=== PATIENT | female | born 1990 | race Caucasian/White ===

== ENCOUNTER 2017-12-22 17:35 | Emergency (ER) | payer SELFPAY ==
[2017-12-22 17:37] VITALS: BP 116/63; PULSE 89; RESP 16; TEMP 37.1; O2SAT 100; BMI 19.8
--- NOTE | 2017-12-22 17:52 | CT_ITS ---
STUDY: CT BRAIN WITHOUT CONTRAST REASON FOR EXAM: Female, 27 years old. Mental status change, lethargy, history of epilepsy with craniotomy RADIATION DOSAGE (If Supplied By Facility): CTDIvol = ( 44.99 ) mGy, DLP = ( 796.11 ) mGycm TECHNIQUE: Transaxial CT imaging of the brain was performed without administration of intravenous contrast material. Sagittal and coronal reconstructed images are provided and reviewed. Individualized dose optimization techniques were used for this CT. COMPARISON: No comparison studies are available. FINDINGS: There are 2 ventriculostomy catheters entering via a right posterior parietal approach. The tip of one projects slightly more anteriorly in the region of the foramen of bone marrow, the second projects posteriorly within the right lateral ventricle. 2. Reservoirs are seen along the skull. There is interruption of the tubing of one of the ventriculostomy catheters along the posterior right parietal scalp. There has been a right temporal craniotomy. The ventricles are slightly asymmetric, with the left lateral ventricle slightly larger than the right. No significant hydrocephalus or transependymal flow of CSF is seen. There has been resection of the right temporal lobe. Small calcifications are seen within the right basal ganglia. Normal brainstem. Normal cerebellum. There is no intracranial hemorrhage. There are no findings of an acute ischemic infarction. Normal visualized paranasal sinuses. CT/Brain/Head without Contrast IMPRESSION: Postoperative changes of right temporal lobe resection. The ventricles are slightly asymmetric, but not significantly dilated. Comparison with any previous CTs would be beneficial. Electronically Signed: Eliezer Armijo DO at 18:52 EDT Tel , Service support ,
--- NOTE | 2017-12-22 17:54 | RAD_ITS ---
STUDY: X-RAY CHEST REASON FOR EXAM: Female, 27 years old. Lethargy, fever, history of epilepsy TECHNIQUE: Single AP portable view of the chest. COMPARISON: None. FINDINGS: Ventriculostomy catheter tubing projects along the right side of the neck and chest, entering into the abdomen with the distal tip not included. There is additionally an abandoned ventriculostomy catheter also along the right side of the neck, with an interruption within the lower neck soft tissues. Cardiac monitoring leads overlie the chest. The lungs are clear and expanded. There is no demonstrated pleural abnormality. Normal size heart. Normal mediastinum and milo. Normal visualized pulmonary arteries. Normal visualized aortic arch and descending thoracic aorta. Normal visualized thoracic spine. Normal visualized ribs, clavicles, and shoulders. There is no demonstrated abnormality of the visualized soft tissue structures of the upper abdomen. RAD/Chest 1 View (Portable) IMPRESSION: No acute process in the chest. Electronically Signed: Eliezer Armijo DO at 18:43 EDT Tel , Service support ,
--- NOTE | 2017-12-22 17:55 | ED.RN ---
PT IS ABLE TO FOLLOW COMMANDS BY SQUEEZING WITH HER HAND. ATTEMPTS TO MOVE ARM INDICATING SHE IS HEARING.
--- NOTE | 2017-12-22 17:55 | ED.VISSUMM ---
- ER Visit Summary Date of Service: 12/22/17 Chief Complaint: Altered mental status History of Present Illness: The patient is a 27 F who presents with altered mental status that has been getting worse over the past week. Family states the patient is being treated for urinary tract infection. Family states patient's activity level has gotten progressively worse over the past week. Family states the patient is having difficulty waking up today. Family took the patient to the urgent care in [place] and then was referred here. Patient does have a history of spina bifida and a brain tumor. Patient had a craniotomy with excision of the brain tumor within the past year. Physical Examination: Vital signs are stable. Patient is afebrile. Patient is in no acute distress. Patient is sleeping on exam. Pupils are equal, round, and reactive to light bilaterally. Neck is supple. Trachea is midline. There is no JVD noted. Heart was regular rate and rhythm. Lungs are clear and equal bilateral. Abdomen is soft. Bowel sounds are normal. There is no apparent tenderness. Patient is not awake and neuro exam is unable to be performed at this time. Test Results: CT scan of the brain was obtained. There is no evidence of hydrocephalus. The left lateral ventricle is slightly larger than the right but there is no other acute intracranial abnormality noted. CBC, basic metabolic profile, and urinalysis were obtained were within normal limits. Family requested CT scan of the abdomen and pelvis be obtained to look at her kidneys. This was performed. Emergency Department Course and Treatment: Patient had some improvement of her mental status here in the emergency department at this has declined again. Case was discussed with Dr. Quiroga at the [facility]. Patient will be transferred there for further evaluation. Family understood and was agreeable with the plan. All questions were answered. Disposition: Transferred to [facility] Impression: Headache, status post INBOUND CALL CENTER REPRESENTATIVE shunt This note was generated with [employer] dictation software. It may contain incorrect words, spelling, and punctuation that were not noted in review of the chart prior to signing ED Disposition - Plan for ED Patient: Disposition: [facility] - Main Chief Complaint: Mental Status Change Diagnosis: Headache, S/P INBOUND CALL CENTER REPRESENTATIVE shunt
[2017-12-22 18:01] VITALS: BP 115/78; PULSE 88; RESP 20; O2SAT 99
--- NOTE | 2017-12-22 18:01 | ED.DCSUM_ITS ---
- ER Visit Summary Date of Service: 12/22/17 Chief Complaint: Altered mental status History of Present Illness: The patient is a 27 F who presents with altered mental status that has been getting worse over the past week. Family states the patient is being treated for urinary tract infection. Family states patient 's activity level has gotten progressively worse over the past week. Family states the patient is having difficulty waking up today. Family took the patient to the urgent care in [place] and then was referred here. Patient does have a history of spina bifida and a brain tumor. Patient had a craniotomy with excision of the brain tumor within the past year. Physical Examination: Vital signs are stable. Patient is afebrile. Patient is in no acute distress. Patient is sleeping on exam. Pupils are equal, round, and reactive to light bilaterally. Neck is supple. Trachea is midline. There is no JVD noted. Heart was regular rate and rhythm. Lungs are clear and equal bilateral. Abdomen is soft. Bowel sounds are normal. There is no apparent tenderness. Patient is not awake and neuro exam is unable to be performed at this time. Test Results: CT scan of the brain was obtained. There is no evidence of hydrocephalus. The left lateral ventricle is slightly larger than the right but there is no other acute intracranial abnormality noted. CBC, basic metabolic profile, and urinalysis were obtained were within normal limits. Family requested CT scan of the abdomen and pelvis be obtained to look at her kidneys. This was performed. Emergency Department Course and Treatment: Patient had some improvement of her mental status here in the emergency department at this has declined again. Case was discussed with Dr. Quiroga at the [facility]. Patient will be transferred there for further evaluation. Family understood and was agreeable with the plan. All questions were answered. Disposition: Transferred to [facility] Impression: Headache, status post IT SUPPORT MANAGER shunt This note was generated with [employer] dictation software. It may contain incorrect words, spelling, and punctuation that were not noted in review of the chart prior to signing ED Disposition - Plan for ED Patient: Disposition: [facility] - Main Chief Complaint: Mental Status Change Diagnosis: Headache, S/P IT SUPPORT MANAGER shunt
[2017-12-22] MEDS: 0.9% Normal Saline 1,000 ML 250 ML IV (18:05)
[2017-12-22 18:11] LABS: Absolute Lymphocyte Count 1.13 X10^3/ul (0.83-4.51); Basophil# 0.01 X10^3/uL; Basophil% 0.1 % (0-1); Eosinophil# 0.01 X10^3/uL; Eosinophils% 0.1 % (0-5); Lymphocyte # 1.13 X10^3/ul (4.0); Mean Corp Hgb Conc 33.3 g/gl (32-36); Mean Corpuscular Hgb 26.7 pg (27.0-32.0); Mean Corpuscular Volume 80.2 fL (81-99); Mean Platelet Vol. 9.3 fl (6.2-12.0); Monocyte# 0.42 X10^3/uL; Monocyte% 5.6 % (0-10); Neutrophil # 5.95 X10^3/uL (2.7-7.7); Neutrophil % 79.1 % (47-70); Platelet Count 266 K/mm3 (150-450); RBC Distribution Width CV 13.5 % (11.6-14.6); RBC Distribution Width SD 38.9 fl (35.1-43.9); Red Blood Count 4.49 M/mm3 (4.2-5.4); White Blood Count 7.5 K/mm3 (4.4-11.0)
[2017-12-22 18:12] LABS: POSITIVE COUNT NO; POSITIVE DIFFERENTIAL NO; POSITIVE MORPHOLOGY NO
[2017-12-22 18:15] LABS: International Normalized Ratio 1.2
[2017-12-22 18:39] LABS: ALB/GLOB Ratio 0.9 RATIO (0.9-2.4); AST(SGOT) 12 U/L (15-37); Alanine Aminotransfer ALT/SGPT 15 U/L (13-56); Albumin, Serum 3.6 g/dL (3.2-5.0); Alkaline Phosphatase 94 U/L (45-117); Anion Gap 11 (5-15); BUN 9 mg/dL (7-18); BUN/Creat Ratio 20.2 RATIO (10-20); Calcium,Total 8.4 mg/dL (8.5-10.1); Chloride 104 mmol/L (98-107); Creatinine, Serum 0.44 mg/dL (0.55-1.02); EST Glomerular Filtration Rate 181 mL/min (>60); Est Glom Filt Rate - Afr Amer 219 mL/min (>60); Estimated Creatinine Clearance 180.36 ml/min; Globulin 4.2 g/dL (2.2-4.2); Glucose 84 mg/dL (74-106); Potassium 3.8 mmol/L (3.5-5.1); Protein, Total 7.8 g/dL (6.4-8.2); Sodium Level 136 mmol/L (136-145)
[2017-12-22 18:57] LABS: Bacteria 0 SEEN /hpf (None Seen); Mucous, Urine 0 SEEN /hpf (<or=2+); Red Blood Cells-Urine 0 SEEN /hpf (0-5)
[2017-12-22 18:58] LABS: Color, Urine Yellow (Yellow); Glucose, Dipstick Normal (Normal); Leukocyte Esterase-Dipstick 25 /ul (Negative); Nitrite-Dipstick Positive (Negative); Occult Blood-Urine Negative /ul (Negative); Protein-Dipstick Negative (Negative); Specific Gravity, Urine 1.005 (1.002-1.030); Urine Clarity Sl. Cloudy (Clear); Urine Urobilinogen 4 mg/dl (Normal)
[2017-12-22 19:05] LABS: Urine Bilirubin Dipstick 3 mg/dL (Negative)
[2017-12-22 19:07] VITALS: BP 109/74; PULSE 82; RESP 16; TEMP 37.2; O2SAT 98
[2017-12-22 19:07] LABS: Ketone-Dipstick 150 mg/dl (Negative)
[2017-12-22 19:10] LABS: Squamous Epithelial Cells - UA 0-5 SEEN /hpf (5-10); White Blood Cells 0-5 SEEN /hpf (0-5)
--- NOTE | 2017-12-22 19:38 | ED.RN ---
lab called with critical lab results. urine ketones 150. Dr. Maguire made aware. no new orders at this time
[2017-12-22] MEDS: Ibuprofen 200 MG Tablet 800 MG PO (20:05)
[2017-12-22 20:39] VITALS: BP 97/57; PULSE 82; RESP 22; TEMP 36.9; O2SAT 98
[2017-12-22] MEDS: Morphine 2 MG/ML Syringe IV (21:34)
[2017-12-22 21:43] VITALS: BP 91/58; PULSE 76; RESP 19; O2SAT 98
--- NOTE | 2017-12-22 22:07 | CT_ITS ---
STUDY: CT ABDOMEN AND PELVIS WITHOUT CONTRAST REASON FOR EXAM: Female, 27 years old. Low back pain, lethargy RADIATION DOSAGE (If Supplied By Facility): CTDIvol = ( 6.04 ) mGy, DLP = ( 271.80 ) mGycm TECHNIQUE: Transaxial images were obtained from the dome of the diaphragm to the symphysis pubis without oral contrast, and without intravenous contrast. Sagittal and coronal images were reconstructed. Individualized dose optimization techniques were used for this CT. COMPARISON: None. FINDINGS: The visualized lung bases are unremarkable. The visualized portions of the heart are within normal limits. Evaluation of the abdominal viscera is limited in the absence of intravenous contrast. Normal liver. Normal gallbladder and extrahepatic biliary system. Normal spleen. Normal pancreas. Normal bilateral adrenal glands. Normal right kidney. Normal left kidney. Normal visualized stomach. Normal small intestine. Normal colon. There is non-visualization of the appendix. Normal abdominal aorta. Normal inferior vena cava. Normal retroperitoneum. Normal urinary bladder. Normal visualized uterus. There is free fluid within the pelvis which may relate to the [employer] shunt catheter or physiologic fluid and demonstrating female. Ventriculostomy catheter tubing is seen, making several loops within the pelvis. It is unclear which of these 2 ventriculostomy catheter tubes represent the band into catheter seen on the chest radiograph from today's date. The tips of both catheters are within the pelvis. 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 There is exaggerated lordosis of the lumbosacral junction. Bilateral L5 pars defects are seen without spondylolisthesis. CT/Abdomen/Pelvis without Cont IMPRESSION: No bowel obstruction or acute renal pathology. Additional nonacute findings, as detailed above. Electronically Signed: Eliezer Armijo DO at 23:55 EDT Tel , Service support ,
[2017-12-22 23:32] VITALS: BP 96/66; PULSE 78; RESP 18; O2SAT 97
[2017-12-23] VITALS: BP 99/66; PULSE 68; RESP 16; TEMP 36.6; O2SAT 97
[2017-12-23 00:19] VITALS: BP 99/66; PULSE 68; RESP 16; TEMP 36.6; O2SAT 97
[2017-12-23 02:19] VITALS: BP 94/67; PULSE 65; RESP 15; O2SAT 97
== END 2017-12-23 02:59 | disposition short-term general hospital (02) ==
PROVIDERS: Emergency Provider Emergency Medicine; Family Provider Nurse Practitioner; PCP Nurse Practitioner
DX: R51 Headache (principal); Z98.2 Presence of cerebrospinal fluid drainage device; Q05.9 Spina bifida, unspecified; Z79.899 Other long term (current) drug therapy
CPT/HCPCS: 70450; 71045; 74176; 80053; 81001; 83605; 85025; 85610; 85730; 87040; 87086; 96361; 96374; 99285; J7030

== ENCOUNTER → 2018-09-29 | Outpatient (CLI) | payer SELFPAY | END | disposition home or self-care (01) | PROVIDERS: Family Provider Nurse Practitioner; PCP Nurse Practitioner; Referring Provider Nurse Practitioner; Visit Provider Nurse Practitioner | DX: R10.9 Unspecified abdominal pain (principal) | CPT/HCPCS: 87086 ==

== ENCOUNTER → 2018-12-04 | Outpatient (CLI) | payer SELFPAY ==
[2018-12-04 19:30] VITALS: BMI 18.8
[2018-12-05 00:26] LABS: ALB/GLOB Ratio 0.8 RATIO (0.9-2.4); AST(SGOT) 45 U/L (15-37); Alanine Aminotransfer ALT/SGPT 120 U/L (13-56); Albumin, Serum 3.6 g/dL (3.2-5.0); Alkaline Phosphatase 101 U/L (45-117); Anion Gap 3 (5-15); BUN 6 mg/dL (7-18); BUN/Creat Ratio 10.3 RATIO (10-20); Calcium,Total 8.7 mg/dL (8.5-10.1); Chloride 110 mmol/L (98-107); Creatinine, Serum 0.58 mg/dL (0.55-1.02); EST Glomerular Filtration Rate 132 mL/min (>60); Est Glom Filt Rate - Afr Amer 160 mL/min (>60); Globulin 4.4 g/dL (2.2-4.2); Glucose 92 mg/dL (74-106); Sodium Level 142 mmol/L (136-145)
[2018-12-05 00:51] LABS: Absolute Lymphocyte Count 2.23 X10^3/ul (0.83-4.51); Absolute Neutrophil Count 4.3 X10^3/uL (2.0-7.7); Basophil# 0.03 X10^3/uL; Basophil% 0.4 % (0-1); Eosinophil# 0.14 X10^3/uL; Hematocrit 38.4 % (37-47); Hemoglobin 12.2 g/dl (12.0-15.0); Lymphocyte # 2.23 X10^3/ul (4.0); Lymphocyte % 31.2 % (19-41); Mean Corp Hgb Conc 31.8 g/gl (32-36); Mean Corpuscular Hgb 25.6 pg (27.0-32.0); Mean Corpuscular Volume 80.7 fL (81-99); Mean Platelet Vol. 10.2 fl (6.2-12.0); Monocyte# 0.42 X10^3/uL; Monocyte% 5.9 % (0-10); Neutrophil # 4.32 X10^3/uL (2.7-7.7); Neutrophil % 60.4 % (47-70); Platelet Count 292 K/mm3 (150-450); RBC Distribution Width CV 14.2 % (11.6-14.6); RBC Distribution Width SD 41.6 fl (35.1-43.9); Red Blood Count 4.76 M/mm3 (4.2-5.4); White Blood Count 7.2 K/mm3 (4.4-11.0)
[2018-12-05 01:07] LABS: POSITIVE COUNT NO; POSITIVE DIFFERENTIAL NO; POSITIVE MORPHOLOGY NO
== END | disposition home or self-care (01) ==
PROVIDERS: Family Provider Nurse Practitioner; PCP Nurse Practitioner; Referring Provider Nurse Practitioner; Visit Provider Nurse Practitioner
DX: R56.9 Unspecified convulsions (principal)
CPT/HCPCS: 80053; 85025

== ENCOUNTER 2019-12-04 22:42 | Inpatient (IN) | payer OTHER, SELFPAY ==
[2018-12-04 19:30] VITALS: BMI 18.8
[2019-12-04 22:44] VITALS: BP 113/69; PULSE 135; RESP 20; TEMP 38.6; O2SAT 98; BMI 23.1
--- NOTE | 2019-12-04 22:55 | EKG12_ITS ---
Test Reason : SEIZURE Blood Pressure : / mmHG Vent. Rate : 127 BPM Atrial Rate : 127 BPM P-R Int : 138 ms QRS Dur : 088 ms QT Int : 314 ms P-R-T Axes : 064 060 041 degrees QTc Int : 456 ms Sinus tachycardia Otherwise normal ECG Confirmed by JESSICA DONALD, CHARLES ([id number]), general expeditor WINNIE CALLAHAN ([id number]) on 12/09/2019 1:02:14 PM Referred By: BB Confirmed By:CHARLES LOPEZ MD
--- NOTE | 2019-12-04 22:56 | CT_ITS ---
STUDY: CT BRAIN WITHOUT CONTRAST REASON FOR EXAM: Female, 29 years old. HEADACHE AND FEVER,TONIC CLONIC SEIZURE -- HX:SEIZURES,CROP RESEARCH SCIENTIST SHUNT,SPINA BIFIDA RADIATION DOSAGE (If Supplied By Facility): CTDIvol = ( 44.99 ) mGy, DLP = ( 796.11 ) mGycm TECHNIQUE: Transaxial CT imaging of the brain was performed without administration of intravenous contrast material. Individualized dose optimization techniques were used for this CT. COMPARISON: CT brain 12/22/2017. FINDINGS: Normal soft tissue structures. Normal calvarium. Left frontal approached ventriculostomy shunt with catheter tip in the left frontal horn. Left frontal addie hole, remote addie hole right parietal and right frontal parietal craniotomy. Previous right parietal approach shunt has been removed in the interim. Postsurgical changes right temporal lobe. Stable calcification in the right basal ganglia. Minimal low-attenuation at the previous right parietal shunt entry site. No hydrocephalus. Stable mild asymmetry of the lateral ventricles. . Normal brainstem. Normal cerebellum. There is no intracranial hemorrhage. There are no findings of an acute ischemic infarction. Normal visualized paranasal sinuses. CT/Brain/Head without Contrast IMPRESSION: Ventriculostomy shunt as above with stable asymmetry of the lateral ventricles and without hydrocephalus. Postsurgical changes right middle cranial fossa and stable calcification in the basal ganglia. There is no acute intracranial pathology.. Electronically Signed: Kenya Lopez MD at 1:01 EDT , Service support ,
--- NOTE | 2019-12-04 22:56 | RAD_ITS ---
STUDY: X-RAY - SHUNTOGRAM REASON FOR EXAM: Female, 29 years old. Tonic-clonic seizure. TECHNIQUE: lateral views of the skull, AP view of the chest, abdomen and pelvis were obtained. COMPARISON: CT brain and CT abdomen and pelvis 12/05/2019. FINDINGS: A left-sided ventricular shunt without evidence of break or kinking in the tubing course. Shunt courses along the soft tissue of the skull, lateral neck, chest and abdomen with the tip located in the right pelvis. Intact course within the abdomen and pelvis confirmed on CT abdomen pelvis, intact course along the left scalp soft tissue to the level of the cervical spine confirm the CT brain. Postsurgical changes at the temporal lobe with bilateral addie holes. There is a abandoned right sided shunt coursing over the right paraspinal chest to the right upper abdomen and along the posterior neck soft tissue. There is no acute cardiopulmonary disease. Lumbosacral and pelvic changes consistent with spina bifida. RAD/Shuntogram/Prec Placed Shunt IMPRESSION: Shunt tubing without evidence of break or kinking along its course. Electronically Signed: Kenya Lopez MD at 1:15 EDT , Service support ,
--- NOTE | 2019-12-04 22:56 | CT_ITS ---
STUDY: CT ABDOMEN AND PELVIS WITHOUT CONTRAST REASON FOR EXAM: Female, 29 years old. DIFFUSE ABDOMEN PAIN AND FEVER,NAUSEA X 5 DAYS,SEIZURE -- HX:SPINA BIFIDA,SEIZURES,[employer] INSTALLER SHUNT RADIATION DOSAGE (If Supplied By Facility): CTDIvol = ( 7.43 ) mGy, DLP = ( 796.11 ) mGycm TECHNIQUE: Transaxial 2.5 mm images were obtained from the dome of the diaphragm to the symphysis pubis without oral contrast, and without intravenous contrast. Sagittal and coronal images were reconstructed. This examination is limited for the evaluation of gastrointestinal, solid organs and vascular structures due to the lack of intravenous and oral contrast. Individualized dose optimization techniques were used for this CT. COMPARISON: CT abdomen pelvis 12/22/2017 FINDINGS: The visualized lung bases are unremarkable. The visualized portions of the heart are within normal limits. Subcutaneous shunt left anterior abdomen with percutaneous approach at the umbilicus level coiling in the left lateral abdomen and coursing through the right inferior colonic gutter. Shunt course is intact. There is a right parasternal shunt catheter entering the upper anterior midline abdomen with a short intraperitoneal course adjacent to the left hepatic lobe. Normal liver. Normal gallbladder and extrahepatic biliary system. Normal spleen. Normal pancreas. Normal bilateral adrenal glands. Normal right kidney. Normal left kidney. There is no obstructive uropathy, obstructive renal or ureteral calculi. Normal visualized stomach. Normal small intestine. Normal colon. There is non-visualization of the appendix. Trace fluid in the right inferior colonic gutter. Normal abdominal aorta. Normal inferior vena cava. Normal retroperitoneum. Normal urinary bladder. The uterus is age appropriate. Trace pelvic fluid. Normal abdominal wall. Exaggerated lordosis of the lower lumbar spine. There is a stable myelomeningocele and osseous deformity consistent with spina bifida. Soft tissue swelling posterior to the bilateral ischii. There is focal soft tissues prominence with air posterior to the right ischio which is deformed and sclerosis. There is no acute cortical destruction. CT/Abdomen/Pelvis without Cont IMPRESSION: There is no hydronephrosis, abscess, collection, perforation or , small bowel or colonic obstruction. Intact shunt course as above. Appendix is not visualized. Possible chronic decubitus ulceration posterior to the right ischium, acute inflammation not excluded. Mild inflammation without skin tract on the left side. These findings appear stable. Electronically Signed: Kenya Lopez MD at 1:13 EDT , Service support ,
[2019-12-04 22:59] VITALS: BP 113/69; PULSE 135; RESP 20; TEMP 38.6; O2SAT 98
--- NOTE | 2019-12-04 23:03 | ED.DCSUM_ITS ---
History of Present Illness Chief Complaint: Seizure Informant: Patient, Family, Genetic Scientist Onset: Today Context: Sudden Onset Timing: Intermittent - x1, Lasts - couple mins Quality: tonic-clonic Location: full body Current Severity: - - gone Maximum Severity: Moderate Worsened by: unk Relieved by: nothing, spont abated Associated Symptoms: about 5 days of fevers, headaches, diffuse abd pain, diarrhea Narrative: Patient self caths, is wheelchair-bound, and has a ventriculoperitoneal shunt due to spina bifida, and states she has seen cloudy urine lately, has had diffuse abdominal pain, some nausea but no vomiting. She does not feel anything in her legs. The father arrives and states that she has had some wounds on her feet recently, 2 days ago the one on the right foot ruptured, drained pus, and does not look good. This is the first visit to a physician in that period of time, since she had a seizure tonight. She is on seizure medication. She has had multiple shunt revisions in the past, her surgeries have been performed at [facility]. - Past Medical History (1) Spina bifida Status: Chronic (2) Seizure disorder Status: Chronic Past Medical History - Allergies and Home Meds Allergies/Adverse Reactions: Allergies amoxicillin [From Augmentin] Allergy (Severe, Verified 12/04/18 19:33) Other clavulanic acid [From Augmentin] Allergy (Severe, Verified 12/04/18 19:33) Other Primary Care Physician: Dori Case NP-C [Primary Care Provider] - Lives: With Family Smoking Status: Never smoker Review of Systems General: Reports: Chills, Fever, Malaise. Denies: Sweats Eyes: Denies: Visual changes - bilaterally, Diplopia ENT: Denies: Bilateral ear pain, Rhinorrhea, Sore throat Cardiovascular: Denies: Chest pain Respiratory: Reports: Dyspnea - a little last few days. Denies: Cough, Orthopnea Gastrointestinal: Reports: Abdominal pain, Nausea, Diarrhea. Denies: Vomiting, Hematochezia Genitourinary: Reports: - - cloudy urine Musculoskeletal: Reports: Extremity Pain. Denies: Neck pain, Back pain Skin: Reports: Abscess - feet, Wounds Neurological: Reports: Headache, Weakness - BLE, Numbness - BLE Physical Exam Vital Signs/Narrative: Vital Signs Temp Pulse Resp BP Pulse Ox 12/04/19 22:59 101.5 F H 135 H 20 H 113/69 98 12/04/19 22:44 101.5 F H 135 H 20 H 113/69 98 Inital Vital Signs reviewed: Yes General: Well nourished, Well developed, No Acute Distress Head: Normocephalic, Atraumatic Eyes: Perrl, EOMI ENT: Moist mucous membranes, No rhinorrhea Neck: Supple, No lymphadenopathy, - - mildly tender throughout shunt distribution left neck, no erythema/abscess Cardiovascular: Regular rate, Regular rhythm, Tachycardia Respiratory: No distress, CTA bilaterally, Chest nontender - including shunt chest distribution Abdomen: Soft, Nondistended, Normal bowel sounds, Tender - diffusely, Guarding - vol, Rebound tenderness - inconsistently; pt states it hurts more to palpate abd Extremities: Edema - Right foot diffuse Skin: Normal color, No rash, - - Very swollen right foot, erythematous, deep abscess cavity lateral aspect of foot, not able to palpate any subcutaneous emphysema, no lymphangitis, looks good above the ankle with a couple of scabbed over wounds. On the dorsum of the left foot, there is a focally swollen area that is not erythematous, but is open, and there is pus easily expressible from it. The rest of the foot looks good. Neurological: Alert, Cranial nerves II-XII grossly intact, Normal Strength - arms, Normal Sensation - arms, Parasthesia - BLE, Weakness - BLE Psychological: Normal affect, Normal Mood Diagnostic/Tx/Re-eval Impressions Abdomen/Pelvis CT 12/04/19 22:56 IMPRESSION: There is no hydronephrosis, abscess, collection, perforation or , small bowel or colonic obstruction. Intact shunt course as above. Appendix is not visualized. Possible chronic decubitus ulceration posterior to the right ischium, acute inflammation not excluded. Mild inflammation without skin tract on the left side. These findings appear stable. Electronically Signed: Kenya Lopez MD at 1:13 EDT , Service support , Brain CT 12/04/19 22:56 IMPRESSION: Ventriculostomy shunt as above with stable asymmetry of the lateral ventricles and without hydrocephalus. Postsurgical changes right middle cranial fossa and stable calcification in the basal ganglia. There is no acute intracranial pathology.. Electronically Signed: Kenya Lopez MD at 1:01 EDT , Service support , Shuntogram 12/04/19 22:56 IMPRESSION: Shunt tubing without evidence of break or kinking along its course. Electronically Signed: Kenya Lopez MD at 1:15 EDT , Service support , Foot X-Ray 12/04/19 23:59 IMPRESSION: Large soft tissue defect likely large ulceration. Significant soft tissue swelling and edema. Osteoporosis. Arthropathy with remodeling particularly of the tarsal bones. No destructive osseous lesion seen to suggest osteomyelitis. This can be further assessed with MRI or bone scan. Electronically Signed: Kenya Lopez MD at 0:57 EDT , Service support , 12/04/19 22:56 Abdomen/Pelvis without Cont [CT] Stat Brain/Head without Contrast [CT] Stat Shuntogram/Prec Placed Shunt [RAD] Stat 12/04/19 23:04 Foot min 3 Views [RAD] Stat 12/04/19 23:59 Foot min 3 Views [RAD] Stat Laboratory Results 12/04/19 12/04/19 12/05/19 23:50 23:50 01:05 WBC 14.3 H RBC 4.05 L Hgb 10.4 L Hct 32.8 L MCV 81.0 MCH 25.7 L MCHC 31.7 L RDW Std Deviation 41.8 RDW Coeff of Danny 14.2 Plt Count 257 MPV 10.0 Immature Gran % (Auto) 1.700 H Neut % (Auto) 82.6 H Lymph % (Auto) 8.7 L [place] % (Auto) 6.5 Eos % (Auto) 0.1 Baso % (Auto) 0.4 Absolute Neuts (auto) 11.8 H Absolute Lymphs (auto) 1.25 Nucleated RBC % 0 Sodium 137 Potassium 3.4 L Chloride 104 Carbon Dioxide 22.0 Anion Gap 11 BUN 7 Creatinine 0.37 L Estim Creat Clear Calc 187.26 Est GFR (MDRD) Af Amer 265 Est GFR (MDRD) Non-Af 219 BUN/Creatinine Ratio 18.8 Glucose 88 Calcium 8.3 L Total Bilirubin 1.30 H AST 68 H ALT 55 Alkaline Phosphatase 265 H Troponin I < 0.015 Total Protein 6.9 Albumin 2.0 L Globulin 4.9 H Albumin/Globulin Ratio 0.4 L Urine Color Yellow Urine Clarity Clear Urine pH 5.0 Ur Specific [place] 1.010 Urine Protein 15 H Urine Glucose (UA) Normal Urine Ketones 150 H Urine Occult Blood 50 H Urine Nitrite Positive H Urine Bilirubin Negative Urine Urobilinogen Normal Ur Leukocyte Esterase Negative Urine RBC 0 SEEN Urine WBC 0 SEEN Ur Squamous Epith Cells 0-5 SEEN Amorphous Sediment 2+ Urine Bacteria 1+ Urine Mucus 0 SEEN - Rhythm Strip Rhythm Strip: Sinus Tach Rate: 127 Ectopy: None - EKG Initial EKG Interpretation: No Acute Injury Pattern, Sinus Tachycardia - Medical Decision Making This patient was very difficult to draw blood from. Nurses were not able to get the second set of blood cultures or a lactic acid. I said this was okay, and to give the antibiotics anyway, as it was in the patient's best interest. I believe she is septic from these infections in her feet. Her right foot appears to have very significant infection throughout the soft tissues. As above, x- ray show no definitive evidence of osteomyelitis although this does not rule that out definitively. Family is not exactly sure how long this is looked red and swollen, but they state that what appeared to be a large abscess on the lateral aspect rupture 2 days ago. This will need surgical consultation I believe. The left foot is not nearly as involved, it appears to have a fairly localized small abscess on the dorsum that we soaked in saline. She had no further seizure activity in the emergency department. Her shunt appears to be intact and CT appears stable. Abdomen/pelvis CT shows no acute intra-abdominal pathology, it did show concern for the possibility of a wound on her sacrum/ischium, we evaluated this clinically by rolling her over with acute care certified nursing assistant, she has an old wound that is well-healed without erythema, tend erness, or anything but skin and scar tissue showing. With her abdominal pain, tenderness, and some mild signs of rebound, my concern is that she could have an infection that the shunt could be transmitting. Given the complexity of this patient, and the possible need for neurosurgical consultation, I called her neurosurgeon at [facility]. Her who is also neurosurgeon and knows about the patient discussed with me on the phone, Dr. Melton; after discussing the case, he states that it does not sound like she has a shunt problem or needs an emergency evaluation of CSF. Indeed, 1 would expect in those cases if her CSF was infected causing her abdominal pain, that she would also have signs of meningitis, which she does not at this time. Patient's neck is very supple, with full range of motion, she is alert and conversive, and does not appear to have an encephalopathy. It is possible she had a breakthrough seizure because of her fever, sepsis, and foot infection. The family does not want to be transferred to [facility] at this time. Will discuss with hospitalist for admission. Will also add antibiotics for more broad-spectrum coverage for the foot which appears to be the obvious source of the sepsis, Invanz. However, the hospitalist wanted this canceled and switched to meropenem. ED Disposition - Plan for ED Patient: Disposition: Acute Care [facility] Diagnosis: Diffuse abdominal pain, RIVET STICKER (ventriculoperitoneal) shunt status, Cellulitis of foot, right, Cutaneous abscess of left foot, Sepsis, Breakthrough seizure, Spina bifida Referrals: Dori Case NP-C [Primary Care Provider] -
--- NOTE | 2019-12-04 23:04 | RAD_ITS ---
STUDY: X-RAY - LEFT FOOT CLINICAL: Female, 29 years old. NECROTIC SORES, FOOT PAIN TECHNIQUE: 3 view(s) of the foot. COMPARISON: None. FINDINGS: Generalized osteoporosis. Remodeling along the distal tibia and fibula and hindfoot. Cortical course thickening distal tibial diaphyses. Sclerosis of the anterior talus. Spurring along the talus and navicular bone. Mild arthropathy of the visualized subtalar, talonavicular, calcaneocuboid, tarsal and tarsometatarsal articulations. Normal metatarsi. Normal metatarsophalangeal joint of the great toe. Normal tibial and fibular sesamoid bones. Normal interphalangeal joint of the great toe. Normal phalanges of the great toe. Normal second through fifth metatarsophalangeal joints. Normal interphalangeal joints and phalanges of the lesser toes. Dorsal soft tissue swelling along the first tarsometatarsal joint and along the lateral fifth metatarsal base without visualized ulceration or pockets of subcutaneous air. RAD/Foot min 3 Views IMPRESSION: Osteoporosis, degenerative changes, remodeling of the tibia and fibula. Soft tissue swelling. No sign of osteomyelitis detected, if there is high clinical suspicion level, correlation with MRI or bone scan is recommended. Electronically Signed: Kenya Lopez MD at 1:19 EDT , Service support ,
[2019-12-04 23:53] VITALS: BP 112/70; PULSE 121; RESP 25; O2SAT 100
--- NOTE | 2019-12-04 23:59 | RAD_ITS ---
STUDY: X-RAY - RIGHT FOOT CLINICAL: Female, 29 years old. NECROTIC SORES ON LATERAL SIDE OF FOOT, FOOT PAIN TECHNIQUE: 3 view(s) of the foot. COMPARISON: None. FINDINGS: Generalized osteoporosis. Prior ORIF distal tibia. There is arthropathy along the tibiotalar, subtalar, talonavicular, calcaneocuboid, tarsal and tarsometatarsal articulations. There is sclerosis and partial remodeling of the tarsal bones. There is otherwise normal metatarsi. Mineral spurring along the flattened first metatarsal head. Normal tibial and fibular sesamoid bones. Normal interphalangeal joint of the great toe. Normal phalanges of the great toe. Normal second through fifth metatarsophalangeal joints. Normal interphalangeal joints and phalanges of the lesser toes. Large soft tissue defect along the base of the fifth metatarsal measuring greater than 2.7 x 1.1 cm along the dorsal soft tissue. There is significant diffuse soft tissue swelling centered at the dorsum of the foot with interstitial edema along the metatarsal level. No other pockets of air are detected. RAD/Foot min 3 Views IMPRESSION: Large soft tissue defect likely large ulceration. Significant soft tissue swelling and edema. Osteoporosis. Arthropathy with remodeling particularly of the tarsal bones. No destructive osseous lesion seen to suggest osteomyelitis. This can be further assessed with MRI or bone scan. Electronically Signed: Kenya Lopez MD at 0:57 EDT , Service support ,
[2019-12-05] VITALS (14 sets, daily range): BP systolic 91–109; BP diastolic 55–72; PULSE 97–114; RESP 14–27; TEMP 36.1–37.3; O2SAT 95–100; BMI 20.7; BMI 20.8
[2019-12-05 00:32] LABS: ALB/GLOB Ratio 0.4 RATIO (0.9-2.4); AST(SGOT) 68 U/L (15-37); Alanine Aminotransfer ALT/SGPT 55 U/L (13-56); Alkaline Phosphatase 265 U/L (45-117); Anion Gap 11 (5-15); BUN 7 mg/dL (7-18); BUN/Creat Ratio 18.8 RATIO (10-20); Calcium,Total 8.3 mg/dL (8.5-10.1); Chloride 104 mmol/L (98-107); Creatinine, Serum 0.37 mg/dL (0.55-1.02); EST Glomerular Filtration Rate 219 mL/min (>60); Est Glom Filt Rate - Afr Amer 265 mL/min (>60); Estimated Creatinine Clearance 187.26 ml/min; Globulin 4.9 g/dL (2.2-4.2); Glucose 88 mg/dL (74-106); Potassium 3.4 mmol/L (3.5-5.1); Protein, Total 6.9 g/dL (6.4-8.2); Sodium Level 137 mmol/L (136-145)
[2019-12-05 00:37] LABS: Absolute Lymphocyte Count 1.25 X10^3/uL (0.83-4.51); Absolute Neutrophil Count 11.8 X10^3/uL (2.0-7.7); Basophil# 0.06 X10^3/uL; Basophil% 0.4 % (0-1); Eosinophil# 0.01 X10^3/uL; Eosinophils% 0.1 % (0-5); Hematocrit 32.8 % (37-47); Hemoglobin 10.4 g/dL (12.0-15.0); Lymphocyte # 1.25 X10^3/ul (4.0); Lymphocyte % 8.7 % (19-41); Mean Corp Hgb Conc 31.7 g/dL (32-36); Mean Corpuscular Hgb 25.7 pg (27.0-32.0); Monocyte# 0.93 X10^3/uL; Monocyte% 6.5 % (0-10); NRBC Flagged by Analyzer 0 % (0-5); Neutrophil % 82.6 % (47-70); Platelet Count 257 K/mm3 (150-450); RBC Distribution Width CV 14.2 % (11.6-14.6); RBC Distribution Width SD 41.8 fl (35.1-43.9); Red Blood Count 4.05 M/mm3 (4.2-5.4); White Blood Count 14.3 K/mm3 (4.4-11.0)
[2019-12-05] MEDS: Acetaminophen 500 MG Tablet 1000 MG PO (00:40)
[2019-12-05] MEDS: 0.9% Normal Saline 1,000 ML 999 ML IV (00:41)
--- NOTE | 2019-12-05 00:42 | ED.RN ---
FISHING ROD ASSEMBLER AT BEDSIDE FOR MORE SPECIMENS. UPDATED PT AND DAD ON POC.
--- NOTE | 2019-12-05 00:52 | ED.RN ---
[facility] WAS UNABLE TO DRAW LABS, TRIED ONCE. UPDATED.
[2019-12-05 01:17] LABS: Mucous, Urine 0 SEEN /hpf (<or=2+); Red Blood Cells-Urine 0 SEEN /hpf (0-5); White Blood Cells 0 SEEN /hpf (0-5)
--- NOTE | 2019-12-05 01:25 | ED.RN ---
DR. GUERRA DOESN'T WANT PT TO GET POKED ANY MORE. OKAY TO PROCEED WITH ATB.
[2019-12-05] MEDS: Vancomycin IV 1,000 MG/200 ML BAG 200 MG IV (01:26)
[2019-12-05 01:40] LABS: Color, Urine Yellow (Yellow); Glucose, Dipstick Normal (Normal); Leukocyte Esterase-Dipstick Negative /ul (Negative); Nitrite-Dipstick Positive (Negative); Occult Blood-Urine 50 /ul (Negative); Protein-Dipstick 15 mg/dl (Negative); Urine Bilirubin Dipstick Negative (Negative); Urine Clarity Clear (Clear); Urine Urobilinogen Normal (Normal)
[2019-12-05 01:41] LABS: Ketone-Dipstick 150 mg/dl (Negative)
[2019-12-05 01:53] LABS: Amorphous Sediment 2+; Bacteria 1+ /hpf (None Seen); Squamous Epithelial Cells - UA 0-5 SEEN /hpf (5-10)
--- NOTE | 2019-12-05 05:50 | HP.PCM_ITS ---
Problem List (1) Spina bifida Status: Chronic (2) Seizure disorder Status: Acute (3) ELECTRICIAN APPRENTICE POWERHOUSE (ventriculoperitoneal) shunt status Status: Acute (4) Cellulitis of foot, right Status: Acute (5) Cutaneous abscess of left foot Status: Acute (6) Sepsis Status: Acute (7) Breakthrough seizure Status: Acute (8) Seizure Status: Acute (9) Lower abdominal guarding Status: Acute History of Present Illness Date of Admission: 12/05/19 Chief Complaint: abdominal pain The patient is a 29 year old F with a significant history of spina bifida; ELECTRICIAN APPRENTICE POWERHOUSE shunt; culture bound and multiple social presents emergency department with abdominal pain. He rated his pain as 5 out of 10. His pain has been going on for 1 week. His pain is aching. The pain radiates to her back. The pain is worse with eating. She denies any ameliorating factors to the pain. Patient straight cath herself. She straight caths about 4 times a day. Patient reports dysuria. Reportedly patient has some jerking movements and altered mental status. Per patient's father patient has not checked her Trileptal as prescribed. She takes a decreased dose of the Trileptal. And her last seizure was about 2 years ago. Past Medical History Past Medical History (Chronic Problems): Chronic Problems (Last Reviewed 12/05/19 @ 07:[address] Vinny Russo MD) Spina bifida (Chronic) Medical History: Medical History (Last Reviewed 12/05/19 @ 07:[address] 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 Vinny Russo MD) History of orthopedic surgery Z98.890 Lives: With Family Smoking Status: Never smoker - *Family History Maternal Family History: Family History (Last Reviewed 12/05/19 @ 07:[address] Vinny Russo MD) Other Breast cancer Diabetes Heart disease High cholesterol Review of Systems Constitutional: Reports: Chills, Fever - subjective. Denies: Weight Change HEENT: Denies: Head Aches, Sinus Congestion, Sinus Drainage Cardiovascular: Denies: Chest Pain, Palpitations Respiratory: Denies: Cough, Shortness of breath at rest, Sputum production Gastrointestinal: Reports: Abdominal Pain. Denies: Nausea, Vomiting Genitourinary: Denies: Dysuria Musculoskeletal: Denies: Joint Pain, Joint Tenderness Skin: Reports: Wounds. Denies: Rash Neurological: Reports: Seizures. Denies: Focal weakness, Numbness, Tingling Psychiatric: Denies: Anxiety, Depression, Homicidal Ideations, Suicidal Ideations Hematologic/ Lymphatic: Denies: Easy Bruising, Easy Bleeding VTE Information - Inpt Only VTE Present on Admission: No VTE Mechan Device Prophylaxis: None VTE Pharm Prophylaxis ordered?: Yes Patient Problems: Active and Suspected Problems (Last Reviewed 12/05/19 @ 07:[address] Vinny Russo MD) ELECTRICIAN APPRENTICE POWERHOUSE (ventriculoperitoneal) shunt status (Acute) Cellulitis of foot, right (Acute) Cutaneous abscess of left foot (Acute) Sepsis (Acute) Breakthrough seizure (Acute) - Physical Exam Vitals/I&O's: Vital Signs Temp Pulse Resp BP Pulse Ox 98.5 F 97 21 H 99/59 L 98 12/05/19 05:16 12/05/19 05:16 12/05/19 05:16 12/05/19 05:16 12/05/19 05:16 Oxygen Delivery Method Room Air Weight: 59.1 kg Body Mass Index (BMI) 23.1 General: Alert, Oriented x3, Cooperative HEENT: PERRLA, EOMI, Normocephalic, - - Protrusion Neck: Supple, No JVD, Negative Carotid Bruits Lungs: Clear to auscultation, Normal air movement, No rhonchi, No wheeze, No rales Cardiovascular: Normal S1, Normal S2, No murmurs, Tachycardic Abdomen: Bowel Sounds Present, Soft, Tender Extremities: - - deformed bilateral feet Skin: No rashes, No breakdown, - - erythema and swelling of bilateral legs; open ulcers of bilateral legs; right worse than left Musculoskeletal: No Tenderness to Palpation of Joints or Extremities Neurological: Cranial nerves II-XII grossly intact Psych/Mental Status: Normal Affect, Appropriate Laboratory Results 12/04/19 23:50: Sodium 137, Potassium 3.4 L, Chloride 104, Carbon Dioxide 22.0, Anion Gap 11, BUN 7, Creatinine 0.37 L, Estim Creat Clear Calc 187.26, Est GFR (MDRD) Af Amer 265, Est GFR (MDRD) Non-Af 219, BUN/Creatinine Ratio 18.8, Glucose 88, Calcium 8.3 L, Total Bilirubin 1.30 H, AST 68 H, ALT 55, Alkaline Phosphatase 265 H, Troponin I < 0.015, Total Protein 6.9, Albumin 2.0 L, Globulin 4.9 H, Albumin/Globulin Ratio 0.4 L 12/04/19 23:50: WBC 14.3 H, RBC 4.05 L, Hgb 10.4 L, Hct 32.8 L, MCV 81.0, MCH 25.7 L, MCHC 31.7 L, RDW Std Deviation 41.8, RDW Coeff of Danny 14.2, Plt Count 257, MPV 10.0, Immature Gran % (Auto) 1.700 H, Neut % (Auto) 82.6 H, Lymph % (Auto) 8.7 L, [place] % (Auto) 6.5, Eos % (Auto) 0.1, Baso % (Auto) 0.4, Absolute Neuts (auto) 11.8 H, Absolute Lymphs (auto) 1.25, Nucleated RBC % 0 12/05/19 01:05: Urine Color Yellow, Urine Clarity Clear, Urine pH 5.0, Ur Specific [place] 1.010, Urine Protein 15 H, Urine Glucose (UA) Normal, Urine Ketones 150 H, Urine Occult Blood 50 H, Urine Nitrite Positive H, Urine Bilirubin Negative, Urine Urobilinogen Normal, Ur Leukocyte Esterase Negative, Urine RBC 0 SEEN, Urine WBC 0 SEEN, Ur Squamous Epith Cells 0-5 SEEN, Amorphous Sediment 2+, Urine Bacteria 1+, Urine Mucus 0 SEEN Current Medications Ertapenem 1 gm/ Sodium (Chloride) 60 mls @ 100 mls/hr IV X1 ONE Stop: 12/05/19 06:22 Assessment/Plan All Active Problems (Last Reviewed 12/05/19 @ 07:[address] Vinny Russo MD) Seizure disorder (Acute) ELECTRICIAN APPRENTICE POWERHOUSE (ventriculoperitoneal) shunt status (Acute) Cellulitis of foot, right (Acute) Cutaneous abscess of left foot (Acute) Sepsis (Acute) Breakthrough seizure (Acute) Seizure (Acute) Lower abdominal guarding (Acute) The patient is a 29 year old F with a significant history of spina bifida; ELECTRICIAN APPRENTICE POWERHOUSE shunt; wheel chair bound and multiple sores presenting to the emergency department with abdominal pain; dysuria; and foot wound infection who meets SIRS criteria and have infection of urine; abdomen and bilateral leg wounds; and who also had a seizure . Sepsis Patient with fever of more than 100.4; white count of 14,300; tachycardia and tachypnea. Also patient patient with bandemia. Blood culture x2 was obtained at the emergency department. Second blood culture lactic acid was not obtained because the very difficult to stick patients. Likely from abdominal infection; urine infection and bilateral foot wound infection. Can not rule out osteomyelitis of right foot. Received vancomycin and Merrem at emergency department. Vancomycin and Merrem ordered outpatient. Morphine for pain Tylenol for fever. Trend CBC, and BMP. Check ESR and CRP. Breast bilateral foot wound. Wound consult. Seizure Continue home Trileptal.. Ativan ordered. Seizure precautions. Hypokalemia Replaced. Trend DVT prophylaxis Subcutaneous heparin. Inpatient E&M: [id number] In Hosp L3
--- NOTE | 2019-12-05 06:31 | NURSING ---
[address] dr trejo sepsis, foot infection, breakthrough seizure, spina bifida
--- NOTE | 2019-12-05 07:39 | PCM.RX.CS ---
Consult Pharmacy has been consulted to manage selected antiobiotic: Vancomycin Type of Consult: New start Suspected Infection: Sepsis Labs: Sodium 137 mmol/L (136-145) 12/04/19 23:50 Potassium 3.4 mmol/L (3.5-5.1) L 12/04/19 23:50 Chloride 104 mmol/L (98-107) 12/04/19 23:50 Carbon Dioxide 22.0 mmol/L (21.0-32.0) 12/04/19 23:50 Anion Gap 11 (5-15) 12/04/19 23:50 BUN 7 mg/dL (7-18) 12/04/19 23:50 Creatinine 0.37 mg/dL (0.55-1.02) L 12/04/19 23:50 Est GFR (MDRD) Af Amer 265 mL/min (>60) 12/04/19 23:50 Est GFR (MDRD) Non-Af 219 mL/min (>60) 12/04/19 23:50 BUN/Creatinine Ratio 18.8 RATIO (10-20) 12/04/19 23:50 Glucose 88 mg/dL (74-106) 12/04/19 23:50 Goal Trough: 15-20 mcg/mL Pharmacy Plan for Drug Dosing: NEW START IV VANCOMYCIN Consulting Physician: Dr. Russo Indication: Sepsis 2/2 unknown source Goal Trough: 15-20 SrCr: 0.37 CrCl: 187 mL/min Comments: Pt got 1000mg IV x1 in ED. Admin time 12/05/19 @0126 Vancomcyin Dose: 750mg IV Q8hr to start 12/05/19 @0900 Pending Level: 12/06/19 @0030, prior to 4th total dose per protocol. Micro: Blood, Urine, and Wound cultures currently pending Pharmacy Service will continue to monitor and adjust dosing as required.
[2019-12-05] MEDS: 0.9% Normal Saline 1,000 ML 75 ML IV (08:27)
[2019-12-05 08:58] LABS: Erythrocyte Sedimentation Rate 81 mm/hr (0-20)
--- NOTE | 2019-12-05 09:27 | PCM.CONS.GEN ---
Reason for Consult Date of Consultation: 12/05/19 Reason for Consultation: Bilateral foot ulcers/infection History of Present Illness: The patient is a 29 year old female with complex medical history, including spina bifida, TRAVEL COUNSELOR shunt, seizures presented to [facility] last night due abdominal pain, back pain, also foot ulcerations and infection. Podiatry was consulted this morning by medicine team for further evaluation of foot ulcerations and infection. Patient's father was at bedside. They relate patient has history of on and off ulcerations to the feet, thinks it is from rubbing on a brace. Patient relates she has been following with physician at [facility] for foot ulcers. Patient relates it looked like ulcerations were healed about 1.5 weeks ago, but recently reopened and infection developed. The right foot is significantly worse than the left. There is significant redness, swelling and also drainage. The patient has no pain, as she has significant peripheral neuropathy to feet. WBC is elevated to 14.3, and there is concern patient is septic from this. There is concern patient had a seizure last night as well. Past Medical History Past Medical History (Chronic Problems): Chronic Problems (Last Reviewed 12/05/19 @ 07:[address] Vinny Russo MD) Spina bifida (Chronic) Medical History: Medical History (Last Reviewed 12/05/19 @ 07:[address] 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 Vinny Russo MD) History of orthopedic surgery Z98.890 Lives: With Family Smoking Status: Never smoker Tobacco Use: Non-smoker - *Family History Maternal Family History: Family History (Last Reviewed 12/05/19 @ 07:[address] Vinny Russo MD) Other Breast cancer Diabetes Heart disease High cholesterol Review of Systems Constitutional: Reports: Malaise. Denies: Chills, Fever Gastrointestinal: Reports: Nausea. Denies: Vomiting - Physical Exam Vitals/I&O's: Vital Signs Temp Pulse Resp BP Pulse Ox 97.9 F 102 H 14 101/69 99 12/05/19 06:55 12/05/19 06:55 12/05/19 06:55 12/05/19 06:55 12/05/19 07:30 Oxygen Delivery Method Room Air Weight: 53.2 kg Body Mass Index (BMI) 20.7 Intake and Output for Last 24 Hours 12/03/19 12/04/19 12/05/19 23:59 23:59 23:59 Intake Total 1200 / 1200 Balance 1200 / 1200 General: Alert, Oriented x3 Extremities: Capillary Refill Less than 3 Seconds, No Calf Tenderness, - - Right foot: There is large ulceration with nonviable tissue present to the dorsal lateral foot, there is purulence and abscess formation, there is cellulitis and edema to the right foot, there ulceration is to the subcutaneous tissue down to fascia layer and there is high concern for osteomyelitis. Left foot: There is open ulceration to the dorsal lateral foot - there is purulent drainage but no erythema/cellulitis, there is some edema. Vascular status appears to be intact to the foot bilateral. Sensation is significantly diminished c/w peripheral neuropathy, there is chronic deformity of the foot for spina bifida bilateral. There is no POP or pain on ROM to the foot/ankle bilateral. Psych/Mental Status: Appropriate, Alert and oriented to time, place, person, mood and affect Laboratory Results 12/04/19 23:50: Sodium 137, Potassium 3.4 L, Chloride 104, Carbon Dioxide 22.0, Anion Gap 11, BUN 7, Creatinine 0.37 L, Estim Creat Clear Calc 187.26, Est GFR (MDRD) Af Amer 265, Est GFR (MDRD) Non-Af 219, BUN/Creatinine Ratio 18.8, Glucose 88, Calcium 8.3 L, Total Bilirubin 1.30 H, AST 68 H, ALT 55, Alkaline Phosphatase 265 H, Troponin I < 0.015, Total Protein 6.9, Albumin 2.0 L, Globulin 4.9 H, Albumin/Globulin Ratio 0.4 L 12/04/19 23:50: WBC 14.3 H, RBC 4.05 L, Hgb 10.4 L, Hct 32.8 L, MCV 81.0, MCH 25.7 L, MCHC 31.7 L, RDW Std Deviation 41.8, RDW Coeff of Danny 14.2, Plt Count 257, MPV 10.0, Immature Gran % (Auto) 1.700 H, Neut % (Auto) 82.6 H, Lymph % (Auto) 8.7 L, [place] % (Auto) 6.5, Eos % (Auto) 0.1, Baso % (Auto) 0.4, Absolute Neuts (auto) 11.8 H, Absolute Lymphs (auto) 1.25, Nucleated RBC % 0 12/04/19 23:50: ESR 81 H 12/05/19 01:05: Urine Color Yellow, Urine Clarity Clear, Urine pH 5.0, Ur Specific [place] 1.010, Urine Protein 15 H, Urine Glucose (UA) Normal, Urine Ketones 150 H, Urine Occult Blood 50 H, Urine Nitrite Positive H, Urine Bilirubin Negative, Urine Urobilinogen Normal, Ur Leukocyte Esterase Negative, Urine RBC 0 SEEN, Urine WBC 0 SEEN, Ur Squamous Epith Cells 0-5 SEEN, Amorphous Sediment 2+, Urine Bacteria 1+, Urine Mucus 0 SEEN 12/05/19 03:50: C-React Prot Ext Range 229.00 H Current Medications Acetaminophen (Tylenol) 650 mg PO Q6H PRN PRN PRN Reason: Pain Score 1-10/Temp > 100.7 F Calamine/Phenol (Calmoseptine Ointment) 1 applic TOPICAL BID DERIAN; Protocol Dextrose (D50w Syringe) 0 gm IV X1 PRN; Protocol PRN Reason: Hypoglycemia Glucagon () 1 mg IM .X1 PRN PRN Reason: Hypoglycemia Heparin Sodium (Porcine) (Heparin Na) 5,000 unit SC Q8 [facility] Meropenem 1 gm/ Sodium (Chloride) 120 mls @ 33 mls/hr IV X1 ONE Stop: 12/05/19 09:43 Last Admin: 12/05/19 06:37 Dose: 33 mls/hr Documented by: Sodium Chloride () 1,000 mls @ 75 mls/hr IV .[id number] DERIAN Last Admin: 12/05/19 08:27 Dose: 75 mls/hr Documented by: Meropenem 500 mg/ Sodium (Chloride) 60 mls @ 100 mls/hr IV Q8 DERIAN Vancomycin IV Pharmacy to Dose (1,000 ea/ Sodium Chloride) 500 mls @ 250 mls/hr IV PRN PRN; Protocol Sodium Chloride () 250 mls @ 15 mls/hr IV .[id number] PRN PRN Reason: Saline Flush Sodium Chloride () 250 mls @ 15 mls/hr IV .[id number] PRN PRN Reason: Additional IVPB Infusion Vancomycin HCl 750 mg/ Sodium (Chloride) 265 mls @ 250 mls/hr IV Q8H DERIAN Lorazepam (Ativan) 2 mg IV PRN PRN PRN Reason: SEIZURES Melatonin (Melatonin) 3 mg PO QHS PRN PRN PRN Reason: INSOMNIA Morphine Sulfate () 1 mg IV Q3H PRN PRN PRN Reason: Pain Score 6-10/10 Nutritional Formula (Lactose Free) (Ensure Enlive) 120 ml PO 4X/DAY DERINA Ondansetron HCl (Zofran) 4 mg IV Q8H PRN PRN PRN Reason: NAUSEA/VOMITING Oxcarbazepine (Trileptal) 150 mg PO BID DERIAN Senna/Docusate Sodium (Senokot-S, Barb-Colace) 2 tablet PO DAILY PRN PRN PRN Reason: CONSTIPATION Sodium Chloride () 10 - 40 ml IV UD PRN PRN Reason: SALINE FLUSH Assessment/Plan All Active Problems (Last Reviewed 12/05/19 @ 07:[address] Vinny Russo MD) Seizure disorder (Acute) TRAVEL COUNSELOR (ventriculoperitoneal) shunt status (Acute) Cellulitis of foot, right (Acute) Cutaneous abscess of left foot (Acute) Sepsis (Acute) Breakthrough seizure (Acute) Seizure (Acute) Lower abdominal guarding (Acute) Ulceration with abscess/cellulitis with high concern for osteomyelitis right foot, concern for sepsis Ulceration with abscess left foot Spina Bifida w/ peripheral neuropathy Reviewed diagnostic data. WBC elevated, reviewed foot xrays, there is no gas noted in the tissues. Clinically there is significant infection to the right foot, and there is also evidence of infection to the left foot. There is concern of sepsis. Cultures have been obtained and pending, patient is on IV antibiotics at this time. Due to the severity of foot infection, right significantly worse than left recommended proceeding with incision and drainage w/ debridement w/ bone biopsy bilateral foot as soon as possible. I spoke and reviewed case with the medicine team, as well as with the anesthesia team. Advised anesthesia that there is concern patient is septic due to foot infections. Per further review, given her neurological history and concern for recent seizure activity the anesthesia team did not feel comfortable proceeding forward with anesthesia at this time as we do not have neurologist present here at hospital, and recommended transferring patient to another hospital facility who would also have neurology services in house. I discussed with the medicine team, and plan is for patient to be transferred to [facility]. This was discussed with patient and she agreed with this plan.
[2019-12-05] MEDS: OXcarbazepine 150 MG Tablet PO (10:38)
[2019-12-05] MEDS: Menthol/Lanolin/Calamine/Znox 113 GM Tube 1 APPLIC TOPICAL (10:38)
--- NOTE | 2019-12-05 12:07 | NURSING ---
Update on patient status/transport to [facility] given to Don, friend of family. Don to let family know of transport and POC
--- NOTE | 2019-12-05 12:29 | NURSING ---
Report called to Connie linton [facility]
--- NOTE | 2019-12-05 13:11 | DS.PCM_ITS ---
<Timothy Bustillo - Last Filed: 12/05/19 13:11> Discharge Date and Diagnosis Date of Admission: 12/05/19 Date of Discharge: 12/05/19 - Primary Discharge Diagnosis Acute Problems: Acute sepsis 2/2 UTI/pyelo, infected chronic BL feet wounds Breakthrough seizure Spina bifida, CUSTOM GARMENT DESIGNER shunt Nonambulatory - Secondary Discharge Diagnosis Chronic Problems: Chronic Problems (Last Reviewed 12/05/19 @ 07:[address] Vinny Russo MD) Spina bifida (Chronic) Hospital Course and Treatment Imaging Results: IMAGING: EEG: pending 12/05/19 07:03 MRI Foot [Lower Ext/No Jt/W/Contrast] [MRI] Routine Pending CT/Abdomen/Pelvis without Cont IMPRESSION: CT/Abdomen/Pelvis without Cont IMPRESSION: There is no hydronephrosis, abscess, collection, perforation or , small bowel or colonic obstruction. Intact shunt course as above. Appendix is not visualized. Possible chronic decubitus ulceration posterior to the right ischium, acute inflammation not excluded. Mild inflammation without skin tract on the left side. These findings appear stable. CT/Brain/Head without Contrast IMPRESSION: Ventriculostomy shunt as above with stable asymmetry of the lateral ventricles and without hydrocephalus. Postsurgical changes right middle cranial fossa and stable calcification in the basal ganglia. There is no acute intracranial pathology.. RAD/Shuntogram/Prec Placed Shunt IMPRESSION: Shunt tubing without evidence of break or kinking along its course. RAD/Foot min 3 Views IMPRESSION: Large soft tissue defect likely large ulceration. Significant soft tissue swelling and edema. Osteoporosis. Arthropathy with remodeling particularly of the tarsal bones. No destructive osseous lesion seen to suggest osteomyelitis. This can be further assessed with MRI or bone scan. Consultations [place]: Podiatry 12/05/19 07:27 Consult: Onc/Wound/digital sales planner Routine Comment: Bilateral leg wound Operations: None Procedures: None Summary of Care Provided: Hospital Course: The patient is a 29 year old F with pmhx of spina bifida, left sided CUSTOM GARMENT DESIGNER shunt, seizure disorder, nonambulatory, self catheterizes, who presented to the ER with c/o abd pain. She had a tonic clonic seizure at home, EMS was called. She was brought to the ER and was not felt to have seizure activity. She complained of abdominal and back pain. UA was positive for UTI, and she had significant CVA tenderness. She also appeared to have very large BL feet wounds, worse on the right. Her father noted these had been looking worse for several days. She appeared septic with fever, leukocytosis, tachycardia and with sources including UTI/pyelo and infected LE wounds. The ER physician contacted her neurosurgeon at [facility], Dr. Melton, who felt that she did not have a shunt problem at this time. CT abdomen was negative for acute process. Shuntogram was negative. CT brain was negative for acute process. Foot xray showed soft tissue swelling, degen changes, osteoporosis, and no ostomyelitis. he was placed on vanc and meropenem and admitted to the PCU. Her father noted that overnight he saw her have muscle spasms while sleeping. There was concern as to whether she had been taking trileptal as prescribed. Trileptal level is pending. EEG is pending. CRP was 229 and ESR 81. Podiatry evaluated the patients foot wounds which were large open ulcerations with copious purulent drainage. Podiatry recommended surgical intervention today, and anasthesia did not feel that surgical intervention at this facility was appropriate. Recommendation was made for transfer to tertiary center and she was accepted at [facility] Dr. Elise. She was transferred in stable condition. This patient was seen by Timothy Bustillo PA-C under the supervision of Dr. Fuentes.[] - Physical Exam Vitals/I&O's: Vital Signs Temp Pulse Resp BP Pulse Ox 97 F L 97 16 101/58 L 100 12/05/19 11:35 12/05/19 11:35 12/05/19 11:35 12/05/19 11:35 12/05/19 11:35 Oxygen Delivery Method Room Air Weight: 117 lb 4.575 oz Body Mass Index (BMI) 20.7 Intake and Output for Last 24 Hours 12/03/19 12/04/19 12/05/19 23:59 23:59 23:59 Intake Total 2089 / 0 Output Total 400 / 400 Balance 1690 / 1690 General: Alert, Oriented x3, Cooperative HEENT: Atraumatic, PERRLA, EOMI, Normocephalic Neck: Supple, No JVD, Negative Carotid Bruits Lungs: Clear to auscultation, Normal air movement Cardiovascular: Regular rate, No murmurs Abdomen: Bowel Sounds Present, Soft, Non Tender, - - BL CVA tenderness Extremities: Capillary Refill Less than 3 Seconds, Edema - BL pedal Skin: - - BL feet ulcerations. Right ulcer a large annular lesion on the dorsal lateral aspect of foot with purulent drainage easily expressed. Musculoskeletal: No Tenderness to Palpation of Joints or Extremities Neurological: Cranial nerves II-XII grossly intact Psych/Mental Status: Normal Affect, Appropriate Microbiology Past 72 Hours 12/04/19 23:15 Ulcer, Decubitus - Left Foot Gram Stain - Final 12/04/19 23:15 Ulcer, Decubitus - Right Foot Gram Stain - Final Laboratory Results 12/04/19 23:50: Sodium 137, Potassium 3.4 L, Chloride 104, Carbon Dioxide 22.0, Anion Gap 11, BUN 7, Creatinine 0.37 L, Estim Creat Clear Calc 187.26, Est GFR (MDRD) Af Amer 265, Est GFR (MDRD) Non-Af 219, BUN/Creatinine Ratio 18.8, Glucose 88, Calcium 8.3 L, Total Bilirubin 1.30 H, AST 68 H, ALT 55, Alkaline Phosphatase 265 H, Troponin I < 0.015, Total Protein 6.9, Albumin 2.0 L, Globulin 4.9 H, Albumin/Globulin Ratio 0.4 L 12/04/19 23:50: WBC 14.3 H, RBC 4.05 L, Hgb 10.4 L, Hct 32.8 L, MCV 81.0, MCH 25.7 L, MCHC 31.7 L, RDW Std Deviation 41.8, RDW Coeff of Danny 14.2, Plt Count 257, MPV 10.0, Immature Gran % (Auto) 1.700 H, Neut % (Auto) 82.6 H, Lymph % (Auto) 8.7 L, [place] % (Auto) 6.5, Eos % (Auto) 0.1, Baso % (Auto) 0.4, Absolute Neuts (auto) 11.8 H, Absolute Lymphs (auto) 1.25, Nucleated RBC % 0 12/04/19 23:50: ESR 81 H 12/05/19 01:05: Urine Color Yellow, Urine Clarity Clear, Urine pH 5.0, Ur Specific [place] 1.010, Urine Protein 15 H, Urine Glucose (UA) Normal, Urine Ketones 150 H, Urine Occult Blood 50 H, Urine Nitrite Positive H, Urine Bilirubin Negative, Urine Urobilinogen Normal, Ur Leukocyte Esterase Negative, Urine RBC 0 SEEN, Urine WBC 0 SEEN, Ur Squamous Epith Cells 0-5 SEEN, Amorphous Sediment 2+, Urine Bacteria 1+, Urine Mucus 0 SEEN 12/05/19 03:50: C-React Prot Ext Range 229.00 H Discharge Diet: - - As directed by receiving facility Discharge Activity: - - As directed by receiving facility Home Medications: Medications to take at Discharge Ciprofloxacin [Cipro] 500 mg PO BID 12/04/19 Oxcarbazepine [Trileptal] 150 mg PO BID 12/04/19 Primary Care Physician: Dori Case NP-C [Primary Care Provider] - Please follow up with your Primary Care Physician in: As directed by receiving facility Disposition: Acute care Hospital Minutes spent on discharge:: 40 Patient Condition:: Stable Medical Necessity - Tobacco Use Smoking Status: Never smoker Tobacco Use: Non-smoker Meaningful Use Info Meaningful Use Diagnoses (Choose all that apply): None applicable <Paintsil,Cascade - Last Filed: 12/05/19 14:10> Discharge Date and Diagnosis - Secondary Discharge Diagnosis Chronic Problems: Chronic Problems (Last Reviewed 12/05/19 @ 07:[address] Vinny Russo MD) Spina bifida (Chronic) Hospital Course and Treatment Imaging Results: 12/05/19 07:03 MRI Foot [Lower Ext/No Jt/W/Contrast] [MRI] Routine Consultations 12/05/19 07:27 Consult: Onc/Wound/digital sales planner Routine Comment: Bilateral leg wound Summary of Care Provided: This patient was seen in conjunction with REYNA Ramírez. I have independently interviewed and examined the patient and reviewed pertinent historical, laboratory, and other data. Please refer to REYNA Ramírez note for his patient's presentation, findings, and recommendations. I have reviewed and his note and concur with his documentation 29-year-old female with complicated history of spina bifida, status post left- sided CUSTOM GARMENT DESIGNER shunt, history of seizure disorder, nonambulatory who presented with abdominal pain. Patient also had a tonic-clonic seizure at home. In the ED work-up showed UTI and possible pyelonephritis. Exam showed chronic bilateral wounds on her feet that were discharging pus. X-ray of bilateral feet were suggestive of osteomyelitis. Podiatry was consulted and was willing to take her to surgery but anesthesia felt she was high risk for it to be done in the hospital. It was recommended the patient be transferred to the [facility] where her neurologists/neurosurgeons are based. Patient was accepted to the [facility] through the transfer line. Physical Exam: General: Alert, Oriented x3, Cooperative HEENT: PERRLA, EOMI, Normocephalic, - - Protrusion Neck: Supple, No JVD, Negative Carotid Bruits Lungs: Clear to auscultation, Normal air movement, No rhonchi, No wheeze, No rales Cardiovascular: Normal S1, Normal S2, No murmurs, Tachycardic Abdomen: Bowel Sounds Present, Soft, Tender Extremities: - - deformed bilateral feet Skin: No rashes, No breakdown, - - erythema and swelling of bilateral legs; open ulcers of bilateral legs; right worse than left Musculoskeletal: No Tenderness to Palpation of Joints or Extremities Neurological: Cranial nerves II-XII grossly intact Psych/Mental Status: Normal Affect, Appropriate - Physical Exam Vitals/I&O's: Vital Signs Temp Pulse Resp BP Pulse Ox 97 F L 97 16 101/58 L 100 12/05/19 11:35 12/05/19 11:35 12/05/19 11:35 12/05/19 11:35 12/05/19 11:35 Oxygen Delivery Method Room Air Weight: 53.2 kg Body Mass Index (BMI) 20.7 Intake and Output for Last 24 Hours 12/03/19 12/04/19 12/05/19 23:59 23:59 23:59 Intake Total 2089 / 2089 Output Total 400 / 400 Balance 1690 / 1690 Microbiology Past 72 Hours 12/04/19 23:15 Ulcer, Decubitus - Left Foot Gram Stain - Final 12/04/19 23:15 Ulcer, Decubitus - Right Foot Gram Stain - Final Laboratory Results 12/04/19 23:50: Sodium 137, Potassium 3.4 L, Chloride 104, Carbon Dioxide 22.0, Anion Gap 11, BUN 7, Creatinine 0.37 L, Estim Creat Clear Calc 187.26, Est GFR (MDRD) Af Amer 265, Est GFR (MDRD) Non-Af 219, BUN/Creatinine Ratio 18.8, Glucose 88, Calcium 8.3 L, Total Bilirubin 1.30 H, AST 68 H, ALT 55, Alkaline Phosphatase 265 H, Troponin I < 0.015, Total Protein 6.9, Albumin 2.0 L, Globu amparo 4.9 H, Albumin/Globulin Ratio 0.4 L 12/04/19 23:50: WBC 14.3 H, RBC 4.05 L, Hgb 10.4 L, Hct 32.8 L, MCV 81.0, MCH 25.7 L, MCHC 31.7 L, RDW Std Deviation 41.8, RDW Coeff of Danny 14.2, Plt Count 257, MPV 10.0, Immature Gran % (Auto) 1.700 H, Neut % (Auto) 82.6 H, Lymph % (Auto) 8.7 L, [place] % (Auto) 6.5, Eos % (Auto) 0.1, Baso % (Auto) 0.4, Absolute Neuts (auto) 11.8 H, Absolute Lymphs (auto) 1.25, Nucleated RBC % 0 12/04/19 23:50: ESR 81 H 12/05/19 01:05: Urine Color Yellow, Urine Clarity Clear, Urine pH 5.0, Ur Specific [place] 1.010, Urine Protein 15 H, Urine Glucose (UA) Normal, Urine Ketones 150 H, Urine Occult Blood 50 H, Urine Nitrite Positive H, Urine Bilirubin Negative, Urine Urobilinogen Normal, Ur Leukocyte Esterase Negative, Urine RBC 0 SEEN, Urine WBC 0 SEEN, Ur Squamous Epith Cells 0-5 SEEN, Amorphous Sediment 2+, Urine Bacteria 1+, Urine Mucus 0 SEEN 12/05/19 03:50: C-React Prot Ext Range 229.00 H Inpatient E&M: [id number] Disch Hosp
--- NOTE | 2019-12-05 14:17 | NURSING ---
EEG results from [facility] received via fax. Report faxed to CCKorin Rosales RN.
== END 2019-12-05 12:01 | disposition short-term general hospital (02) | DRG 872 ==
LOC: ED 12-05 05:45 → PCU 12-05 07:04
PROVIDERS: Admitting Provider Hospitalist; Emergency Provider Emergency Medicine; PCP Nurse Practitioner; Visit Provider Internal Medicine
DX: A41.9 Sepsis, unspecified organism (principal); N10 Acute pyelonephritis; L03.115 Cellulitis of right lower limb; L02.612 Cutaneous abscess of left foot; L97.518 Non-pressure chronic ulcer of other part of right foot with other specified severity; Z98.2 Presence of cerebrospinal fluid drainage device; Q05.9 Spina bifida, unspecified; G40.909 Epilepsy, unspecified, not intractable, without status epilepticus; Z99.3 Dependence on wheelchair; Z79.899 Other long term (current) drug therapy; E87.6 Hypokalemia; G62.9 Polyneuropathy, unspecified; L97.529 Non-pressure chronic ulcer of other part of left foot with unspecified severity
CPT/HCPCS: 36415; 70450; 73630; 74176; 75809; 80053; 81001; 84484; 85025; 85652; 86140; 87040; 87070; 87077; 87086; 87186; 87205; 93005; 95819; 97163; 97166; 99285; J2185; J7030; J7050; P9612; A4216